=== PATIENT | male | born 1970 | race Caucasian/White ===

== ENCOUNTER 2017-02-13 14:26 | Inpatient (IN) | payer SELFPAY ==
[~2017-02-13] VITALS: Ht 177.8 cm; Wt 109.8 kg
[2017-02-13 15:23] LABS: ADD MIUA? YES; BILIRUBIN MODERATE; BLOOD SMALL; COLOR AMBER ((YELLOW)); GLUCOSE (STRIP) NEGATIVE; KETONES NEGATIVE; LEUKOCYTES NEGATIVE; NITRITE NEGATIVE; PROTEIN (STRIP) 30; SPECIFIC GRAVITY 1.018 (1.000-1.030)
[2017-02-13 15:28] LABS: HEMATOCRIT 41.7 % (38.0-50.0); MCH 29.5 PG (29.0-34.0); MCHC 35.3 G/DL (30.0-36.0); MCV 83.7 FL (86-99); MEAN PLAT.VOLUME 11.4 uM^3 (9.0-12.4); PLATELET COUNT 134 K/uL (156-360); RBC DIS.WIDTH-CV 12.8 % (11.8-14.6); RBC DIS.WIDTH-SD 38.9 % (39-53); RED BLOOD COUNT 4.98 M/uL (4.00-5.50); WHITE BLOOD COUNT 13.9 K/uL (4.1-10.2)
[2017-02-13 15:29] LABS: BACTERIA RARE /HPF; CALCIUM OXALATE CRYSTALS 3+ /HPF; EPITHELIAL CELLS RARE /HPF; MUCUS 3+ /LPF; RED BLOOD CELLS 0-5 /HPF (0-5); WHITE BLOOD CELLS 15-20 /HPF (0-5)
[2017-02-13] MEDS ORDERED: LISINOPRIL20 MG PO (15:35)
[2017-02-13] MEDS ORDERED: PRILOSEC OTC20 MG PO (15:35)
[2017-02-13 15:37] LABS: ICTOTEST POSITIVE
[2017-02-13 15:38] LABS: CHLORIDE 94 mEq/L (99-109); POTASSIUM 3.4 mEq/L (3.7-5.4); SODIUM 128 mEq/L (136-147)
[2017-02-13 15:41] LABS: GLUCOSE 140 mg/dL (70-99)
[2017-02-13 15:42] LABS: ANION GAP 13 MEQ/L (2-14); TOTAL BILIRUBIN 5.6 mg/dL (0.0-1.0)
[2017-02-13 15:44] LABS: ALKALINE PHOSPHATASE 176 IU/L (3-129); GFR ESTIMATE (CALCULATED) > 59 mL/min/
[2017-02-13 15:45] LABS: UREA NITROGEN (BUN) 24 mg/dL (9-23)
[2017-02-13 15:48] LABS: LIPASE 26 U/L (1.0-51.0)
[2017-02-13 22:17] VITALS: BP 126/74
[2017-02-14 03:29] VITALS: BP 105/58
[2017-02-14 07:33] VITALS: BP 106/63
[2017-02-14 10:04] LABS: HEMATOCRIT 36.9 % (38.0-50.0); MCH 29.3 PG (29.0-34.0); MCHC 33.6 G/DL (30.0-36.0); MCV 87.2 FL (86-99); MEAN PLAT.VOLUME 12.7 uM^3 (9.0-12.4); PLATELET COUNT 132 K/uL (156-360); RBC DIS.WIDTH-CV 13.6 % (11.8-14.6); RBC DIS.WIDTH-SD 43.9 % (39-53); RED BLOOD COUNT 4.23 M/uL (4.00-5.50); WHITE BLOOD COUNT 15.9 K/uL (4.1-10.2)
[2017-02-14 10:10] LABS: ANION GAP 10 MEQ/L (2-14); CHLORIDE 100 MEQ/L (99-109); GFR ESTIMATE (CALCULATED) > 59 mL/min/; GLUCOSE 128 mg/dL (70-99); POTASSIUM 3.8 MEQ/L (3.7-5.4); SAMPLE HEMOLYSIS CHECK 0; SAMPLE ICTERIC CHECK 1; SAMPLE LIPEMIA CHECK 0; SODIUM 133 MEQ/L (136-147); UREA NITROGEN (BUN) 23 mg/dL (9-23)
[2017-02-14 11:45] VITALS: BP 141/80
[2017-02-14 18:31] VITALS: BP 125/63
[2017-02-14 19:05] VITALS: BP 121/70
[2017-02-14 22:42] VITALS: BP 125/69
[2017-02-15 04:02] VITALS: BP 127/76
[2017-02-15 07:00] LABS: EOSINOPHIL COUNT 0.2 K/uL (0-0.3); HEMATOCRIT 35.7 % (38.0-50.0); IMMATURE GRANULOCYTE (%) 3.3 % (0.0-0.7); IMMATURE GRANULOCYTE COUNT 0.5 K/uL; INSTRUMENT ABS NEUTROPHIL CT 10.9 K/uL; LYMPHOCYTE COUNT 2.2 K/uL (1.0-2.8); MCH 29.1 PG (29.0-34.0); MCHC 33.6 G/DL (30.0-36.0); MCV 86.4 FL (86-99); MEAN PLAT.VOLUME 12.5 uM^3 (9.0-12.4); MONOCYTE (%) 7.8 % (3-12); MONOCYTE COUNT 1.2 K/uL (0-0.8); NEUTROPHIL COUNT 10.9 K/uL (1.8-6.4); PLATELET COUNT 128 K/uL (156-360); RBC DIS.WIDTH-CV 13.7 % (11.8-14.6); RBC DIS.WIDTH-SD 43.7 % (39-53); RED BLOOD COUNT 4.13 M/uL (4.00-5.50)
[2017-02-15 07:21] LABS: ALKALINE PHOSPHATASE 116 IU/L (3-129); ANION GAP 10 MEQ/L (2-14); CHLORIDE 102 MEQ/L (99-109); GFR ESTIMATE (CALCULATED) > 59 mL/min/; GLUCOSE 115 mg/dL (70-99); MAGNESIUM 2.3 mg/dl (1.3-2.7); POTASSIUM 3.4 MEQ/L (3.7-5.4); SAMPLE HEMOLYSIS CHECK 0; SAMPLE ICTERIC CHECK 1; SAMPLE LIPEMIA CHECK 0; SODIUM 134 MEQ/L (136-147); TOTAL BILIRUBIN 3.5 MG/DL (0.0-1.0); UREA NITROGEN (BUN) 23 mg/dL (9-23)
[2017-02-15 07:53] VITALS: BP 122/66
[2017-02-15 11:00] VITALS: BP 130/60
[2017-02-15 16:39] VITALS: BP 143/79
[2017-02-15 18:52] VITALS: BP 117/74
[2017-02-15 22:40] VITALS: BP 129/78
[2017-02-16 03:03] VITALS: BP 130/84
[2017-02-16 07:30] LABS: BASOPHIL COUNT 0.1 K/uL (0-0.1); EOSINOPHIL (%) 2.2 % (0-5); EOSINOPHIL COUNT 0.4 K/uL (0-0.3); HEMATOCRIT 36.8 % (38.0-50.0); IMMATURE GRANULOCYTE (%) 3.9 % (0.0-0.7); IMMATURE GRANULOCYTE COUNT 0.7 K/uL; INSTRUMENT ABS NEUTROPHIL CT 13.4 K/uL; LYMPHOCYTE COUNT 2.3 K/uL (1.0-2.8); MCH 29.6 PG (29.0-34.0); MCV 87.2 FL (86-99); MEAN PLAT.VOLUME 12.3 uM^3 (9.0-12.4); MONOCYTE COUNT 1.5 K/uL (0-0.8); NEUTROPHIL (%) 72.8 % (45-76); NEUTROPHIL COUNT 13.4 K/uL (1.8-6.4); PLATELET COUNT 165 K/uL (156-360); RBC DIS.WIDTH-CV 14.1 % (11.8-14.6); RBC DIS.WIDTH-SD 45.1 % (39-53); RED BLOOD COUNT 4.22 M/uL (4.00-5.50); WHITE BLOOD COUNT 18.4 K/uL (4.1-10.2)
[2017-02-16 08:10] VITALS: BP 131/76
[2017-02-16 10:35] LABS: ALKALINE PHOSPHATASE 128 IU/L (3-129); ANION GAP 10 MEQ/L (2-14); CHLORIDE 103 MEQ/L (99-109); GFR ESTIMATE (CALCULATED) > 59 mL/min/; GLUCOSE 95 mg/dL (70-99); MAGNESIUM 2.2 mg/dl (1.3-2.7); POTASSIUM 3.9 MEQ/L (3.7-5.4); SAMPLE HEMOLYSIS CHECK 0; SAMPLE ICTERIC CHECK 1; SAMPLE LIPEMIA CHECK 0; SODIUM 136 MEQ/L (136-147); UREA NITROGEN (BUN) 21 mg/dL (9-23)
[2017-02-16 10:36] LABS: TOTAL BILIRUBIN 4.6 MG/DL (0.0-1.0)
[2017-02-16 16:07] VITALS: BP 129/77
[2017-02-16 18:47] VITALS: BP 129/78
[2017-02-16 22:27] VITALS: BP 136/85
[2017-02-17 02:30] VITALS: BP 131/76
[2017-02-17 06:48] LABS: HEMATOCRIT 36.1 % (38.0-50.0); MCH 29.4 PG (29.0-34.0); MCHC 33.5 G/DL (30.0-36.0); MCV 87.8 FL (86-99); MEAN PLAT.VOLUME 11.8 uM^3 (9.0-12.4); PLATELET COUNT 210 K/uL (156-360); RBC DIS.WIDTH-CV 14.4 % (11.8-14.6); RBC DIS.WIDTH-SD 46.4 % (39-53); RED BLOOD COUNT 4.11 M/uL (4.00-5.50); WHITE BLOOD COUNT 21.6 K/uL (4.1-10.2)
[2017-02-17 07:10] LABS: ALKALINE PHOSPHATASE 128 IU/L (3-129); ANION GAP 8 MEQ/L (2-14); CHLORIDE 103 MEQ/L (99-109); GFR ESTIMATE (CALCULATED) > 59 mL/min/; GLUCOSE 95 mg/dL (70-99); POTASSIUM 3.9 MEQ/L (3.7-5.4); SAMPLE HEMOLYSIS CHECK 0; SAMPLE ICTERIC CHECK 0; SAMPLE LIPEMIA CHECK 0; SODIUM 136 MEQ/L (136-147); UREA NITROGEN (BUN) 17 mg/dL (9-23)
[2017-02-17 07:12] LABS: TOTAL BILIRUBIN 3.4 MG/DL (0.0-1.0)
[2017-02-17 07:27] VITALS: BP 127/68
[2017-02-17 22:41] VITALS: BP 110/68
[2017-02-18 04:05] VITALS: BP 113/71
[2017-02-18 07:02] LABS: HEMATOCRIT 37.2 % (38.0-50.0); MCH 29.4 PG (29.0-34.0); MCHC 32.8 G/DL (30.0-36.0); MCV 89.6 FL (86-99); MEAN PLAT.VOLUME 11.1 uM^3 (9.0-12.4); PLATELET COUNT 264 K/uL (156-360); RBC DIS.WIDTH-CV 14.7 % (11.8-14.6); RBC DIS.WIDTH-SD 48.1 % (39-53); RED BLOOD COUNT 4.15 M/uL (4.00-5.50); WHITE BLOOD COUNT 22.2 K/uL (4.1-10.2)
[2017-02-18 07:05] VITALS: BP 124/67
[2017-02-18 07:28] LABS: ALKALINE PHOSPHATASE 131 IU/L (3-129); ANION GAP 6 MEQ/L (2-14); CHLORIDE 103 MEQ/L (99-109); GFR ESTIMATE (CALCULATED) > 59 mL/min/; GLUCOSE 111 mg/dL (70-99); MAGNESIUM 2.1 mg/dl (1.3-2.7); POTASSIUM 4.6 MEQ/L (3.7-5.4); SAMPLE HEMOLYSIS CHECK 0; SAMPLE ICTERIC CHECK 0; SAMPLE LIPEMIA CHECK 0; SODIUM 134 MEQ/L (136-147); UREA NITROGEN (BUN) 15 mg/dL (9-23)
[2017-02-18 07:37] LABS: ABS NEUTROPHIL COUNT 16.7; ATYPICAL LYMPHOCYTE 5.3 %; BAND NEUTROPHILS 1.8 % (0-8.0); EOSINOPHILS 4.4 % (0-5.0); INSTRUMENT ABS NEUTROPHIL CT 15.8 K/uL; LYMPHOCYTES 9.7 % (15.0-45.0); METAMYELOCYTES 0.9 %; MYELOCYTES 1.8 %; PLAT.SUFFICIENCY ADEQUATE; SEG.NEUTROPHILS 73.4 % (46.0-76.0)
[2017-02-18 07:40] LABS: TOTAL BILIRUBIN 2.5 MG/DL (0.0-1.0)
[2017-02-18 15:53] VITALS: BP 120/65
[2017-02-18 23:07] VITALS: BP 130/76
[2017-02-19 07:17] LABS: HEMATOCRIT 37.9 % (38.0-50.0); MCH 29.1 PG (29.0-34.0); MCHC 31.9 G/DL (30.0-36.0); MCV 91.1 FL (86-99); PLATELET COUNT 302 K/uL (156-360); RBC DIS.WIDTH-CV 14.6 % (11.8-14.6); RBC DIS.WIDTH-SD 48.7 % (39-53); RED BLOOD COUNT 4.16 M/uL (4.00-5.50); WHITE BLOOD COUNT 19.6 K/uL (4.1-10.2)
[2017-02-19 07:45] VITALS: BP 129/74
[2017-02-19 07:48] LABS: ALKALINE PHOSPHATASE 132 IU/L (3-129); ANION GAP 11 MEQ/L (2-14); CHLORIDE 103 MEQ/L (99-109); GFR ESTIMATE (CALCULATED) > 59 mL/min/; GLUCOSE 115 mg/dL (70-99); POTASSIUM 4.8 MEQ/L (3.7-5.4); SAMPLE HEMOLYSIS CHECK 0; SAMPLE ICTERIC CHECK 0; SAMPLE LIPEMIA CHECK 0; SODIUM 137 MEQ/L (136-147); TOTAL BILIRUBIN 1.9 MG/DL (0.0-1.0); UREA NITROGEN (BUN) 14 mg/dL (9-23)
[2017-02-19 08:51] LABS: ABS NEUTROPHIL COUNT 15.2; ANISOCYTOSIS 1+; ATYPICAL LYMPHOCYTE 0.9 %; BAND NEUTROPHILS 2.6 % (0-8.0); BASOPHILS 0.8 %; EOSINOPHIL ABS CT 0; INSTRUMENT ABS NEUTROPHIL CT 13.3 K/uL; LYMPHOCYTES 11.2 % (15.0-45.0); METAMYELOCYTES 2.6 %; MYELOCYTES 1.7 %; PLAT.SUFFICIENCY ADEQUATE
[2017-02-19 09:49] LABS: C DIFF TOXIN NEGATIVE (NEGATIVE)
[2017-02-19 09:54] LABS: PROBE CHECK PASS; SPECIMEN PROCESSING CONTROL PASS
[2017-02-19 12:16] VITALS: BP 131/71
[2017-02-19 17:14] VITALS: BP 132/70
[2017-02-19 23:22] VITALS: BP 116/74
[2017-02-20 08:03] VITALS: BP 124/79
[2017-02-20 13:19] LABS: HEMATOCRIT 38.3 % (38.0-50.0); MCH 29.5 PG (29.0-34.0); MCHC 32.4 G/DL (30.0-36.0); MEAN PLAT.VOLUME 10.6 uM^3 (9.0-12.4); PLATELET COUNT 373 K/uL (156-360); RBC DIS.WIDTH-CV 14.3 % (11.8-14.6); RBC DIS.WIDTH-SD 47.8 % (39-53); RED BLOOD COUNT 4.21 M/uL (4.00-5.50); WHITE BLOOD COUNT 17.6 K/uL (4.1-10.2)
[2017-02-20 13:45] LABS: ALKALINE PHOSPHATASE 105 IU/L (3-129); ANION GAP 7 MEQ/L (2-14); CHLORIDE 105 MEQ/L (99-109); GFR ESTIMATE (CALCULATED) > 59 mL/min/; GLUCOSE 93 mg/dL (70-99); POTASSIUM 4.5 MEQ/L (3.7-5.4); SAMPLE HEMOLYSIS CHECK 0; SAMPLE ICTERIC CHECK 0; SAMPLE LIPEMIA CHECK 0; SODIUM 137 MEQ/L (136-147); TOTAL BILIRUBIN 1.6 MG/DL (0.0-1.0); UREA NITROGEN (BUN) 11 mg/dL (9-23)
[2017-02-20 15:28] LABS: ABS NEUTROPHIL COUNT 10.9; EOSINOPHIL ABS CT 0.2; INSTRUMENT ABS NEUTROPHIL CT 11.3 K/uL
[2017-02-20 16:45] VITALS: BP 132/73
[2017-02-20 22:52] VITALS: BP 124/78
[2017-02-21 06:56] LABS: MCH 29.3 PG (29.0-34.0); MCHC 32.2 G/DL (30.0-36.0); MCV 91.1 FL (86-99); MEAN PLAT.VOLUME 10.6 uM^3 (9.0-12.4); PLATELET COUNT 369 K/uL (156-360); RBC DIS.WIDTH-CV 13.9 % (11.8-14.6); RBC DIS.WIDTH-SD 46.8 % (39-53); RED BLOOD COUNT 4.06 M/uL (4.00-5.50); WHITE BLOOD COUNT 14.8 K/uL (4.1-10.2)
[2017-02-21 07:29] LABS: ALKALINE PHOSPHATASE 107 IU/L (3-129); ANION GAP 8 MEQ/L (2-14); CHLORIDE 104 MEQ/L (99-109); GFR ESTIMATE (CALCULATED) > 59 mL/min/; GLUCOSE 109 mg/dL (70-99); POTASSIUM 4.5 MEQ/L (3.7-5.4); SAMPLE HEMOLYSIS CHECK 0; SAMPLE ICTERIC CHECK 0; SAMPLE LIPEMIA CHECK 0; SODIUM 136 MEQ/L (136-147); TOTAL BILIRUBIN 1.4 MG/DL (0.0-1.0); UREA NITROGEN (BUN) 12 mg/dL (9-23)
[2017-02-21 07:51] VITALS: BP 121/66
[2017-02-21 08:24] LABS: ABS NEUTROPHIL COUNT 10.1; EOSINOPHIL ABS CT 0.3; INSTRUMENT ABS NEUTROPHIL CT 9.6 K/uL
[2017-02-21 18:36] VITALS: BP 132/69
[2017-02-21 19:25] VITALS: BP 120/67
[2017-02-21 22:37] VITALS: BP 116/67
[2017-02-22 07:51] VITALS: BP 127/75
[2017-02-22] MEDS ORDERED: LEVAQUIN500 MG PO (13:32)
[2017-02-22 15:24] VITALS: BP 108/62
== END 2017-02-22 16:32 | disposition home or self-care (01) | DRG 339 ==
LOC: EME 14:26 → 5EAST 17:59 → EDOF 17:59 → 5EAST 22:16
PROVIDERS: Nurse Practitioner Family; Physician Assistant Surgical; Surgery
DX: K35.3 Acute appendicitis with localized peritonitis (principal); R78.81 Bacteremia; B96.89 Other specified bacterial agents as the cause of diseases classified elsewhere; E87.1 Hypo-osmolality and hyponatremia; K56.69 Other intestinal obstruction; J98.11 Atelectasis; R74.8 Abnormal levels of other serum enzymes; E80.6 Other disorders of bilirubin metabolism; D72.829 Elevated white blood cell count, unspecified; I10 Essential (primary) hypertension; K21.9 Gastro-esophageal reflux disease without esophagitis; R19.7 Diarrhea, unspecified; E66.3 Overweight; Z68.34 Body mass index [BMI] 34.0-34.9, adult
CPT/HCPCS: 71020; 74177; 76705; 80048; 80053; 80202; 81003; 82248; 83605; 83690; 83735; 84100; 85025; 85027; 87040; 87076; 87077; 87185; 87186; 87493; 87801; 88304; 93005; 93975; 94660; 99281; 99285; C9113; J0131; J0330; J0696; J0744; J1100; J1170; J1580; J1650; J1885; J1956; J2405; J2543; J2550; J2710; J3010; J3370; J7030; J7050; S0030

== ENCOUNTER → 2017-04-13 | Outpatient (CLI) | payer SELFPAY ==
[~2017-04-13] MED LIST: LEVAQUIN500 MG PO; LISINOPRIL20 MG PO; PRILOSEC OTC20 MG PO
== END | disposition home or self-care (01) ==
LOC: RAD 08:05
DX: I81 Portal vein thrombosis (principal); I87.009 Postthrombotic syndrome without complications of unspecified extremity
CPT/HCPCS: 74177